=== PATIENT | female | born 1940 | race American Indian/Alaskan Native ===

== ENCOUNTER 2017-04-29 04:00 | Observation (INO) | payer OTHER ==
[2017-04-29 04:26] VITALS: BMI 32.8
[2017-04-29 04:35] LABS: BASOPHIL 0.5 % (0-2.0); MCH 24.4 pg (25.7-33.7); MCHC 31.3 g/dl (32.0-36.0); MEAN PLT VOLUME 7.7 fl (7.5-11.1); NEUTROPHILS 64.6 % (42.8-82.8); PLATELET COUNT 276 K/MM3 (134-434); RDW 15.5 % (11.6-15.6); WHITE BLOOD COUNT 10.3 K/mm3 (4.0-10.0)
--- NOTE | 2017-04-29 04:37 | PDOC ---
History of Present Illness - General History Source: Patient, Family, Old Records Exam Limitations: No Limitations - History of Present Illness Initial Comments: 04/29/17 05:30 The patient is a 77 year old female brought via EMS and presenting with her family, with a significant past medical history of asthma, diabetes, colitis, HTN, HLD and hypothyroidism, who presents to the emergency department with abdominal pain and back pain for the past 3 days. She describes her abdominal pain as diffused throughout her abdomen, ranging from mild to moderate, with radiation to her back. She notes that taking a deep breath exacerbates her pain. She denies any pain exacerbation when she eats. The patient denies chest pain, shortness of breath, headache and dizziness. Denies fever, chills, nausea, vomit, diarrhea and constipation. Denies dysuria, frequency, urgency and hematuria. Allergies: None Past surgical history: Left knee surgery, back surgery Social history: No alcohol, tobacco or drug use reported PMD - Dr. Stephen Balderas <Chase Finn - Last Filed: 04/29/17 05:30> <Justina Rolle - Last Filed: 04/29/17 06:22> <Tierney Flores - Last Filed: 04/30/17 09:39> - General Chief Complaint: Pain, Acute Stated Complaint: ABDOMINAL PAIN Time Seen by Provider: 04/29/17 04:36 Past History <Chase Finn - Last Filed: 04/29/17 05:30> - Past Medical History Anemia: No Asthma: Yes Cancer: No Cardiac Disorders: No CVA: No COPD: No CHF: No Dementia: No Diabetes: Yes GI Disorders: Yes (H/O COLITIS) Disorders: Yes (DENIES) HTN: Yes Hypercholesterolemia: Yes Liver Disease: No Suicide Attempt (Hx): No Seizures: No Thyroid Disease: (YES--HYPOTHYROIDISM) - Surgical History Abdominal Surgery: No Appendectomy: No Cardiac Surgery: No Cholecystectomy: No Lung Surgery: No Neurologic Surgery: Yes (BACK) Orthopedic Surgery: Yes (LT. KNEE REPLACEMENT) - Immunization History Td Vaccination: Yes TDAP Vaccination: Yes Immunization Up to Date: Yes - Psycho/Social/Smoking Cessation Hx Anxiety: Yes Suicidal Ideation: No (son denies) Smoking Status: No Smoking History: Never smoked Have you smoked in the past 12 months: No Number of Cigarettes Smoked Daily: 0 Hx Alcohol Use: No Drug/Substance Use Hx: No Substance Use Type: None Hx Substance Use Treatment: No <Justina Rolle - Last Filed: 04/29/17 06:22> <Tierney Flores - Last Filed: 04/30/17 09:39> - Past Medical History Allergies/Adverse Reactions: Allergies Allergy/AdvReac Type Severity Reaction Status Date / Time No Known Drug Allergies Allergy Verified 04/29/17 04:18 Home Medications: Ambulatory Orders Albuterol Sulfate Inhaler - [Ventolin HFA Inhaler -] 1 inh PO QID PRN 05/19/14 Docusate Sodium [Colace -] 100 mg PO TID 05/19/14 Lidocaine 5% Patch [Lidoderm -] 1 patch TP DAILY 05/19/14 Simvastatin [Zocor -] 20 mg PO HS 05/19/14 Tiotropium [place] [Spiriva] 1 inh PO BID 05/19/14 Albuterol Sulfate Inhaler - [Ventolin HFA Inhaler -] 1 - 2 inh PO QID PRN Denosumab [Prolia -] 60 mg SQ ASDIR 04/20/15 Esomeprazole Mag Trihydrate [Nexium] 20 mg PO DAILY 04/20/15 Hydroxychloroquine Sulfate 200 mg PO DAILY 04/20/15 Multivitamins [Multivit ([facility] Formulary)] 1 tab PO DAILY 04/20/15 Albuterol 0.083% Nebulizer Brenda [Ventolin 0.083% Nebulizer Soln -] 1 neb NEB TIDR vial 04/30/15 Amlodipine Besylate [Norvasc -] 10 mg PO DAILY tablet 04/30/15 Duloxetine HCl [Cymbalta -] 60 mg PO DAILY #0 capsule. 04/30/15 Polyethylene Glycol 3350 [Miralax 119 gm Btl -] 17 gm PO DAILY bottle 04/30/15 Arformoterol Tartrate [Brovana] 15 mcg IH ASDIR 04/29/17 Aspirin Coated [Ecotrin -] 81 mg PO DAILY 04/29/17 Famotidine [Pepcid -] 20 mg PO DAILY 04/29/17 Ferrous Sulfate 325 mg PO BID 04/29/17 Levothyroxine [Synthroid -] 75 mcg PO DAILY 04/29/17 Oxycodone HCl/Acetaminophen [Endocet 7.5-325 mg Tablet] 1 each PO DAILY Pregabalin [Lyrica -] 50 mg PO BID PRN 04/29/17 Review of Systems - Review of Systems Able to Perform ROS?: Yes Comments:: 04/29/17 05:30 GENERAL/CONSTITUTIONAL: No fever or chills. No weakness. HEAD, EYES, EARS, NOSE AND THROAT: No change in vision. No ear pain or discharge. No sore throat. CARDIOVASCULAR: No chest pain or shortness of breath RESPIRATORY: No cough, wheezing, or hemoptysis. GASTROINTESTINAL: (+) Abdominal pain. No nausea, vomiting, diarrhea or constipation. GENITOURINARY:(+) Back pain. No dysuria, frequency, or change in urination. MUSCULOSKELETAL: No joint or muscle swelling or pain. No neck pain. SKIN: No rash NEUROLOGIC: No headache, vertigo, loss of consciousness, or change in strength/ sensation. ENDOCRINE: No increased thirst. No abnormal weight change HEMATOLOGIC/LYMPHATIC: No anemia, easy bleeding, or history of blood clots. ALLERGIC/IMMUNOLOGIC: No hives or skin allergy. <Chase Finn - Last Filed: 04/29/17 05:30> *Physical Exam - Vital Signs Last Vital Signs Temp Pulse Resp BP Pulse Ox 97.9 F 78 22 133/68 95 04/29/17 04:24 04/29/17 04:24 04/29/17 04:24 04/29/17 04:24 04/29/17 04:24 - Physical Exam Comments: 04/29/17 05:30 GENERAL: Awake, alert, and fully oriented, in no acute distress HEAD: No signs of trauma, normocephalic, atraumatic EYES: PERRLA, EOMI, sclera anicteric, conjunctiva clear ENT: Auricles normal inspection, hearing grossly normal, nares patent, oropharynx clear without exudates. Moist mucosa NECK: Normal ROM, supple, no lymphadenopathy, JVD, or masses LUNGS: (+) Crackles. No distress, speaks full sentences. HEART: Regular rate and rhythm, normal S1 and S2, no murmurs, rubs or gallops, peripheral pulses normal and equal bilaterally. ABDOMEN: Soft, nontender, normoactive bowel sounds. No guarding, no rebound. No masses EXTREMITIES: Normal inspection, Normal range of motion, no edema. No clubbing or cyanosis. NEUROLOGICAL: Cranial nerves II through XII grossly intact. Normal speech, normal gait, no focal sensorimotor deficits SKIN: Warm, Dry, normal turgor, no rashes or lesions noted. <Chase Finn - Last Filed: 04/29/17 05:30> - Vital Signs Last Vital Signs Temp Pulse Resp BP Pulse Ox 97.9 F 78 22 133/68 95 04/29/17 04:24 04/29/17 04:24 04/29/17 04:24 04/29/17 04:24 04/29/17 04:24 <Justina Rolle - Last Filed: 04/29/17 06:22> - Vital Signs Last Vital Signs Temp Pulse Resp BP Pulse Ox 97.9 F 82 22 148/76 95 04/29/17 04:24 04/29/17 08:24 04/29/17 04:24 04/29/17 08:24 04/29/17 08:24 <Tierney Flores - Last Filed: 04/30/17 09:39> ED Treatment Course - LABORATORY CBC & Chemistry Diagram: 04/29/17 04:26 04/29/17 04:26 - ADDITIONAL ORDERS Additional order review: Laboratory Results 04/29/17 04:26 Sodium 136 Potassium 4.2 Chloride 104 Carbon Dioxide 23 Anion Gap 9 BUN 24 H D Creatinine 1.2 H Creat Clearance w eGFR 43.80 Random Glucose 171 H D Calcium 7.8 L Total Bilirubin 0.2 D AST 16 D ALT 14 Alkaline Phosphatase 80 D Creatine Kinase 63 Troponin I < 0.02 Total Protein 6.3 L Albumin 2.7 L Lipase 115 04/29/17 04:26 RBC 3.62 MCV 78.0 L MCHC 31.3 L RDW 15.5 MPV 7.7 D Neutrophils % 64.6 D Lymphocytes % 23.7 D Monocytes % 8.2 D Eosinophils % 3.0 D Basophils % 0.5 D <Chase Finn - Last Filed: 04/29/17 05:30> - LABORATORY CBC & Chemistry Diagram: 04/29/17 04:26 04/29/17 04:26 <Justina Rolle - Last Filed: 04/29/17 06:22> - LABORATORY CBC & Chemistry Diagram: 04/30/17 06:55 04/30/17 06:55 - ADDITIONAL ORDERS Additional order review: Laboratory Results 04/29/17 04/29/17 04:26 01:49 Sodium 136 Potassium 4.2 Chloride 104 Carbon Dioxide 23 Anion Gap 9 BUN 24 H D Creatinine 1.2 H Creat Clearance w eGFR 43.80 Random Glucose 171 H D Calcium 7.8 L Total Bilirubin 0.2 D AST 16 D ALT 14 Alkaline Phosphatase 80 D Creatine Kinase 63 Troponin I < 0.02 Total Protein 6.3 L Albumin 2.7 L Lipase 115 Urine Color Colorless Urine Appearance Clear Urine pH 5.0 Urine Protein Negative Urine Glucose (UA) Negative Urine Ketones Negative Urine Blood Negative Urine Nitrite Negative Urine Bilirubin Negative Urine Urobilinogen Negative Ur Leukocyte Esterase Negative 04/29/17 04:26 RBC 3.62 MCV 78.0 L MCHC 31.3 L RDW 15.5 MPV 7.7 D Neutrophils % 64.6 D Lymphocytes % 23.7 D Monocytes % 8.2 D Eosinophils % 3.0 D Basophils % 0.5 D - Medications Given in the ED: ED Medications Discontinued Medications Generic Name Dose Route Start Last Admin Trade Name Freq PRN Reason Stop Dose Admin Al Hydroxide/Mg Hydroxide 30 ml 04/29/17 05:21 04/29/17 05:36 Mylanta Oral Suspension - PO 04/29/17 05:22 30 ml ONCE ONE Administration Morphine Sulfate 2 mg 04/29/17 05:20 04/29/17 06:09 Morphine Injection - IVPUSH 04/29/17 05:21 2 mg ONCE ONE Administration Sodium Chloride 500 ml 04/29/17 05:21 04/29/17 05:36 Normal Saline - IV 04/29/17 05:22 500 ml ONCE ONE Administration <Tierney Flroes - Last Filed: 04/30/17 09:39> Medical Decision Making - Medical Decision Making 04/29/17 06:22 Pt comes with upper abdominal pain. But she also points toher lower abd pain. She has never had abd surgery, and on exam it is possible that she has a GB inflammation or a diverticulitis. She has no diarrhea and no vomiting, and no dysuria. No fever; no flank pain; she is able to eat without pain. She has constipation and gas. She has fibrotic lung dz, and she has HTN. She is complaint with all her meds. She will be treated with pain meds and IVF. Labs pending. CT abd pelvis with oral contrast pending; US abdomen pending. Pt will be signed out to the day ER doctor. <Justina Rolle - Last Filed: 04/29/17 06:22> - Medical Decision Making 04/29/17 09:[address] Balderas's office, awaiting callback. <Tierney Flores - Last Filed: 04/30/17 09:39> *DC/Admit/Observation/Transfer - Attestations Scribe Attestion: 04/29/17 05:30 Documentation prepared by Chase Finn, acting as medical office receptionist assistant for Justina Rolle MD <Chsae Finn - Last Filed: 04/29/17 05:30> <Justina Rolle - Last Filed: 04/29/17 06:22> <Tierney Flores - Last Filed: 04/30/17 09:39> Diagnosis at time of Disposition: Abdominal pain Qualifiers: Abdominal location: generalized Qualified Code(s): R10.84 - Generalized abdominal pain Abdominal aortic aneurysm Qualifiers: Presence of rupture: without rupture Qualified Code(s): I71.4 - Abdominal aortic aneurysm, without rupture - Discharge Dispostion Condition at time of disposition: Guarded - Referrals
[2017-04-29 05:08] LABS: ALBUMIN 2.7 g/dl (3.4-5.0); ANION GAP 9 (8-16); BILIRUBIN,TOTAL 0.2 mg/dL (0.2-1.0); CALCIUM 7.8 mg/dL (8.5-10.1); CO2 23 mmol/L (21-32); COCKROFT - GAULT 53.6605; CREATININE 1.2 mg/dL (0.55-1.02); GLUCOSE,RANDOM 171 mg/dL (74-106); SGOT/AST 16 U/L (15-37); SGPT/ALT 14 U/L (12-78); TOT PROT 6.3 g/dl (6.4-8.2)
[2017-04-29 05:11] LABS: ALK PHOS 80 U/L (45-117); TROPONIN I < 0.02 ng/ml (0.00-0.05)
[2017-04-29] MEDS ORDERED: morphine CARPU-JECT 2 MG/1 ML DISP.SYRIN IVPUSH ONE (05:20)
[2017-04-29] MEDS ORDERED: SODIUM CHLORIDE 0.9% 500 ML INFUS.BAG IV ONE (05:21)
[2017-04-29] MEDS ORDERED: morphine CARPU-JECT 2 MG/1 ML DISP.SYRIN ONE (05:21)
[2017-04-29] MEDS ORDERED: MAG HYDROX/AL HYDROX/SIMETH 30 ML UNIT-DOSE CUP PO ONE (05:21)
[2017-04-29] MEDS ORDERED: MAG HYDROX/AL HYDROX/SIMETH 30 ML UNIT-DOSE CUP ONE (05:29)
[2017-04-29 06:56] LABS: URINE APPEARANCE CLEAR; URINE BILIRUBIN NEGATIVE (NEGATIVE); URINE BLOOD NEGATIVE (NEGATIVE); URINE COLOR COLORLESS; URINE GLUCOSE (UA) NEGATIVE (NEGATIVE); URINE KETONE NEGATIVE (NEGATIVE); URINE LEUK ESTERASE NEGATIVE (NEGATIVE); URINE NITRITE NEGATIVE (NEGATIVE); URINE PROTEIN NEGATIVE (NEGATIVE); URINE UROBILINOGEN NEGATIVE E.U./dl (0.2-1.0)
[2017-04-29] MEDS ORDERED: morphine CARPU-JECT 4 MG/1 ML DISP.SYRIN IVPUSH ONE (09:21)
[2017-04-29] MEDS ORDERED: morphine CARPU-JECT 4 MG/1 ML DISP.SYRIN ONE (09:24)
--- NOTE | 2017-04-29 10:03 | PDOC ---
*Physical Exam - Vital Signs Last Vital Signs Temp Pulse Resp BP Pulse Ox 97.9 F 82 22 148/76 95 04/29/17 04:24 04/29/17 08:24 04/29/17 04:24 04/29/17 08:24 04/29/17 08:24 ED Treatment Course - LABORATORY CBC & Chemistry Diagram: 04/29/17 04:26 04/29/17 04:26 - ADDITIONAL ORDERS Additional order review: Laboratory Results 04/29/17 04/29/17 04/29/17 07:15 04:26 01:49 Sodium 136 Potassium 4.2 Chloride 104 Carbon Dioxide 23 Anion Gap 9 BUN 24 H D Creatinine 1.2 H Creat Clearance w eGFR 43.80 Random Glucose 171 H D Calcium 7.8 L Total Bilirubin 0.2 D AST 16 D ALT 14 Alkaline Phosphatase 80 D Creatine Kinase 63 Troponin I < 0.02 Total Protein 6.3 L Albumin 2.7 L Lipase 115 Urine Color Colorless Urine Appearance Clear Urine pH 5.0 Urine Protein Negative Urine Glucose (UA) Negative Urine Ketones Negative Urine Blood Negative Urine Nitrite Negative Urine Bilirubin Negative Urine Urobilinogen Negative Ur Leukocyte Esterase Negative Stool Occult Blood Negative 04/29/17 04:26 RBC 3.62 MCV 78.0 L MCHC 31.3 L RDW 15.5 MPV 7.7 D Neutrophils % 64.6 D Lymphocytes % 23.7 D Monocytes % 8.2 D Eosinophils % 3.0 D Basophils % 0.5 D - Medications Given in the ED: ED Medications Discontinued Medications Generic Name Dose Route Start Last Admin Trade Name Freq PRN Reason Stop Dose Admin Al Hydroxide/Mg Hydroxide 30 ml 04/29/17 05:21 04/29/17 05:36 Mylanta Oral Suspension - PO 04/29/17 05:22 30 ml ONCE ONE Administration Morphine Sulfate 2 mg 04/29/17 05:20 04/29/17 06:09 Morphine Injection - IVPUSH 04/29/17 05:21 2 mg ONCE ONE Administration Morphine Sulfate 4 mg 04/29/17 09:21 04/29/17 09:28 Morphine Injection - IVPUSH 04/29/17 09:22 4 mg ONCE ONE Administration Sodium Chloride 500 ml 04/29/17 05:21 04/29/17 05:36 Normal Saline - IV 04/29/17 05:22 500 ml ONCE ONE Administration Medical Decision Making - Medical Decision Making 04/29/17 09:21 Pt signed out to me at 7am signout, was pending US and CT a/p for diffuse abd pain. She was noted to have significant change in her hemoglobin since last admission 2 years ago. I have obtained stool occult. 04/29/17 10:03 Case d/w Dr. Metcalf, covering Dr. Balderas, will admit on her service. She is not aware if patient had prior known history of AAA, will review outpatient records. I will page Dr. Clayton to discuss. 04/29/17 10:22 Case d/w Dr. Clayton, will evaluate. *DC/Admit/Observation/Transfer Diagnosis at time of Disposition: Abdominal pain Qualifiers: Abdominal location: generalized Qualified Code(s): R10.84 - Generalized abdominal pain Abdominal aortic aneurysm Qualifiers: Presence of rupture: without rupture Qualified Code(s): I71.4 - Abdominal aortic aneurysm, without rupture - Discharge Dispostion Condition at time of disposition: Guarded Admit: Yes - Referrals - Patient Instructions - Post Discharge Activity
[2017-04-29] MEDS ORDERED: SODIUM CHLORIDE 1,000 ML IV STA (10:21)
[2017-04-29] MEDS ORDERED: ALBUTEROL SO4 0.083% IH SOL 2.5 MG/3 ML VIAL.NEB. NEB PRN (18:02)
[2017-04-29] MEDS ORDERED: OXYCODONE/APAP 5/325MG COMBO TABLET PO PRN (18:11)
--- NOTE | 2017-04-29 20:08 | HP ---
Admitting History and Physical - Primary Care Physician PCP: Javier Balderas - Admission Chief Complaint: pain History of Present Illness: developed over the past 4 days progressively worsening, constant, pleuritic lower chest/upper abdominal pain, going around in a band like feeling. no recent travel, no fever, no chills, no medication change History Source: Patient, Family Member Limitations to Obtaining History: Language Barrier - Past Medical History Cardiovascular: Yes: CAD (NSTEMI in past), HTN, Hyperlipdemia. No: AFIB, Aneurysm, Aortic Insufficiency, Aortic Stenosis, CHF, Deep Vein Thrombosis, IN, Mitral Insufficiency, Mitral Stenosis, Murmur, Pulmonary Hypertension, Other Pulmonary: Yes: Asthma, COPD, Pneumonia, Other (interstitial lung disease) Gastrointestinal: Yes: Constipation, GERD. No: Ascites, Cancer, Crohn's Disease , Diverticulitis, Diverticulosis, Esophageal Varices, Gastritis, GI Bleed, Hemorrhoids, Hiatal Hernia, Inflamatory Bowel Disease, Irritable Bowel Disease, Pancreatitis, Peptic Ulcer Disease, Ulcerative Colitis, Other ...: No Infectious Disease: Yes: C-Diff (), Herpes Zoster (2013). No: AIDS, HIV, MRSA, STD's, Tuberculosis, VREF, Other Psych: Yes: Depression (recently started on Cymbalta). No: Addictions, Anxiety , Bipolar, Panic, Psychosis, Schizophrenia, Other Musculoskeletal: Yes: Osteoarthritis (s/p left knee replacement). No: Bursitis , Chronic low back pain, Hemiparesis, Hemiplegia, Paraplegia, Other Endocrine: Yes: Diabetes Mellitus (diet controlled hyperglycemia), Hypothyroidism, Osteopenia (osteoporosis with compression fractures), Other ( hyponatremia chronic) - Past Surgical History Past Surgical History: Yes: Cataract Removal, Joint Replacement (L TKR, left hip ). No: None, AAA Repair, AICD, Amputation, Appendectomy, Arthrosocopy, AV Fistula/Graft, Bariatric Surgery, Breast Biopsy, Bypass, CABG, Carotid Endarterectomy, Cholecystectomy, Colectomy, Colonoscopy, Colostomy, Craniotomy, , Cystectomy, Hernia Repair, Hysterectomy, Ileal Conduit, Ileosotomy, Kidney Transplant, Laminectomy, Liver Transplant, Mastectomy, Nephrectomy, Oopherectomy, Orchiectomy, Permanent Pacemaker, Prostatectomy, Splenectomy, Stent, Thoracotomy, TURP, Tonsillectomy, Tubal Ligation, Upper Endoscopy, Valve Replacement, Vasectomy, Vein Stripping/Ligation - Smoking History Smoking history: Never smoked Have you smoked in the past 12 months: No Aproximately how many cigarettes per day: 0 - Alcohol/Substance Use Hx Alcohol Use: No History of Substance Use: reports: None - Social History Usual Living Arrangement: Yes: With Spouse ADL: Independent History of Recent Travel: No (returned from [facility]/[place] yesterday) Home Medications - Allergies Allergies/Adverse Reactions: Allergies Allergy/AdvReac Type Severity Reaction Status Date / Time No Known Drug Allergies Allergy Verified 04/29/17 04:18 - Home Medications Home Medications: Ambulatory Orders RX: Albuterol Sulfate Inhaler - [Ventolin HFA Inhaler -] 1 inh PO QID PRN RX: Docusate Sodium [Colace -] 100 mg PO TID 05/19/14 RX: Lidocaine 5% Patch [Lidoderm -] 1 patch TP DAILY 05/19/14 RX: Simvastatin [Zocor -] 20 mg PO HS 05/19/14 RX: Tiotropium [place] [Spiriva] 1 inh PO BID 05/19/14 RX: Albuterol Sulfate Inhaler - [Ventolin HFA Inhaler -] 1 - 2 inh PO QID PRN RX: Denosumab [Prolia -] 60 mg SQ ASDIR 04/20/15 RX: Esomeprazole Mag Trihydrate [Nexium] 20 mg PO DAILY 04/20/15 RX: Hydroxychloroquine Sulfate 200 mg PO DAILY 04/20/15 RX: Multivitamins [Multivit ([facility] Formulary)] 1 tab PO DAILY 04/20/15 RX: Albuterol 0.083% Nebulizer Brenda [Ventolin 0.083% Nebulizer Soln -] 1 neb NEB TIDR vial 04/30/15 RX: Amlodipine Besylate [Norvasc -] 10 mg PO DAILY tablet 04/30/15 RX: Duloxetine HCl [Cymbalta -] 60 mg PO DAILY #0 capsule. 04/30/15 RX: Polyethylene Glycol 3350 [Miralax 119 gm Btl -] 17 gm PO DAILY bottle 04/30 Arformoterol Tartrate [Brovana] 15 mcg IH ASDIR 04/29/17 Aspirin Coated [Ecotrin -] 81 mg PO DAILY 04/29/17 Famotidine [Pepcid -] 20 mg PO DAILY 04/29/17 Oxycodone HCl/Acetaminophen [Endocet 7.5-325 mg Tablet] 1 each PO DAILY Pregabalin [Lyrica -] 50 mg PO BID PRN 04/29/17 RX: Ferrous Sulfate 325 mg PO BID 04/29/17 RX: Levothyroxine [Synthroid -] 75 mcg PO DAILY 04/29/17 Family Disease History - Family Disease History Family History: Unable to Obtain Family Disease History: Other: Father (d), Mother (d) Review of Systems - Review of Systems Constitutional: reports: Weakness Eyes: denies: No Symptoms HENT: denies: No Symptoms Neck: denies: No Symptoms Cardiovascular: denies: Palpitations, Shortness of Breath Respiratory: reports: SOB on Exertion (chronic). denies: Cough, Hemoptysis, Wheezing Gastrointestinal: reports: Abdominal Pain. denies: Constipation, Diarrhea, Dysphagia, Nausea, Rectal Bleeding, Vomiting Genitourinary: denies: No Symptoms Musculoskeletal: reports: Back Pain (chronic) Integumentary: denies: No Symptoms Neurological: denies: No Symptoms Psychiatric: denies: No Symptoms Pain Intensity: 8 Physical Examination Vital Signs: Vital Signs Temperature 97.6 F 04/29/17 17:58 Pulse Rate 75 04/29/17 17:58 Respiratory Rate 18 04/29/17 17:58 Blood Pressure 147/78 04/29/17 17:58 O2 Sat by Pulse Oximetry (%) 95 04/29/17 17:58 Constitutional: Yes: Anxious, Obese Eyes: Yes: EOM Intact HENT: Yes: Normocephalic Neck: Yes: Trachea Midline Cardiovascular: Yes: Regular Rate and Rhythm Respiratory: Yes: Diminished, Rales (coarse basal). No: Accessory Muscle Use, Rhonchi, Wheezes Gastrointestinal: Yes: Normal Bowel Sounds, Soft, Abdomen, Obese Musculoskeletal: Yes: Back Pain Extremities: Yes: WNL Edema: No Neurological: Yes: WNL Imaging - Results Chest X-ray: Report Reviewed Cat Scan: Report Reviewed Problem List - Problems (1) Abdominal aortic aneurysm Code(s): I71.4 - ABDOMINAL AORTIC ANEURYSM, WITHOUT RUPTURE Qualifiers: Presence of rupture: without rupture Qualified Code(s): I71.4 - Abdominal aortic aneurysm, without rupture (2) Abdominal pain Code(s): R10.9 - UNSPECIFIED ABDOMINAL PAIN Qualifiers: Abdominal location: generalized Qualified Code(s): R10.84 - Generalized abdominal pain Assessment/Plan unclear etiology, will repeat cardiac enzymes, TSH, lipase imaging so far negative for abdmonial process or aortic dissection new aneurysm, however, shoudld not cause this level of pain admit to hospital iv fluids pain mgmt
[2017-04-29] MEDS: oxyCODONE HCL 5 MG TABLET PO PRN (21:02)
[2017-04-29] MEDS: DOCUSATE SODIUM 100 MG CAPSULE (FP) PO SCH (21:02)
[2017-04-29] MEDS: ACETAMINOPHEN 325 MG TABLET (FP) PO PRN (21:02)
[2017-04-29] MEDS: ACLIDINIUM BROMIDE 400 MCG/INH AERO.POWD IH SCH (21:09)
[2017-04-29] MEDS: SODIUM CHLORIDE 0.45% 1,000 ML IV SCH (21:12)
[2017-04-29] MEDS: PREGABALIN 50 MG CAPSULE PO SCH (22:22)
[2017-04-30] MEDS: ACETAMINOPHEN 325 MG TABLET (FP) PO PRN (06:12)
[2017-04-30] MEDS: oxyCODONE HCL 5 MG TABLET PO PRN (06:12)
[2017-04-30] MEDS: DOCUSATE SODIUM 100 MG CAPSULE (FP) PO SCH (06:13)
[2017-04-30] MEDS: SODIUM CHLORIDE 0.45% 1,000 ML IV SCH (06:14)
[2017-04-30] MEDS ORDERED: LEVOTHYROXINE NA 75 MCG TABLET (FP) PO SCH (07:00)
[2017-04-30 07:45] LABS: BASOPHIL 0.6 % (0-2.0); EOSINOPHIL 6.2 % (0-4.5); MCHC 32.1 g/dl (32.0-36.0); MEAN PLT VOLUME 7.9 fl (7.5-11.1); NEUTROPHILS 59.7 % (42.8-82.8); PLATELET COUNT 316 K/MM3 (134-434); RDW 15.3 % (11.6-15.6); WHITE BLOOD COUNT 10.1 K/mm3 (4.0-10.0)
[2017-04-30 08:08] LABS: ALBUMIN 2.8 g/dl (3.4-5.0); ANION GAP 10 (8-16); BILIRUBIN,TOTAL 0.4 mg/dL (0.2-1.0); CALCIUM 8.2 mg/dL (8.5-10.1); CO2 25 mmol/L (21-32); GLUCOSE,RANDOM 121 mg/dL (74-106); SGOT/AST 16 U/L (15-37); SGPT/ALT 14 U/L (12-78); TOT PROT 6.8 g/dl (6.4-8.2)
[2017-04-30 08:17] LABS: ALK PHOS 95 U/L (45-117); THYROID STIMULATING HORMONE 2.19 uIU/ml (0.358-3.74); TROPONIN I < 0.02 ng/ml (0.00-0.05)
[2017-04-30] MEDS ORDERED: amLODIPine BESYLATE 10 MG TABLET (FP) PO SCH (10:00)
[2017-04-30] MEDS ORDERED: PANTOPRAZOLE 40 MG TABLET (FP) PO SCH (10:00)
[2017-04-30] MEDS ORDERED: LIDOCAINE 5% TOPICAL PATCH TP SCH (10:00)
[2017-04-30] MEDS ORDERED: HYDROXYCHLOROQUINE SO4 200 MG TABLET (FP) PO SCH (10:00)
[2017-04-30] MEDS ORDERED: PT OWN MED DRAWER 7, Y5N ONE (10:21)
[2017-04-30] MEDS: PREGABALIN 50 MG CAPSULE PO SCH (10:27)
[2017-04-30] MEDS: ACLIDINIUM BROMIDE 400 MCG/INH AERO.POWD IH SCH (10:28)
--- NOTE | 2017-04-30 10:31 | PN ---
Progress Note (short form) - Note Progress Note: Vascular surgery: Asked to evaluate the patient for the finding of a thoracic aneurysm. She was admitted several days ago for upper back pain and abd pain. The patient states that she has chronic low back pain after a fall two years ago. No history of upper back pain until now. This pain started three days ago, it is in her upper back, b/l below her shoulders and into her ribs. She denises any trauma. She c/ o SOB but also states that she has chronic lungs issues and had a lung biopsy several years ago. Overall her pain is improved slighty, no nausea or emesis. PMHX: HTN, Diabetes, CAD with NSTEMI, asthma, COPD, intersititial lung disease PSHX: lung biospy, left knee surgery, hip surgery Vital Signs Period Temp Pulse Resp BP Sys/Amin Pulse Ox Last 24 Hr 97.5 F-99.2 F 75-100 18-18 122-161/78-91 95-95 PE: CV: RRR Lungs: course BS b/l, no wheezing ABD: soft, non-distended, non-tender CT CHEST 04/29: with IV constrast-5.3cm focal aneurysm in proximal aortic arch. No evidence fo additional aneurysmal or dissection within the thoracic or abdominal aorta. Interstitial lung disease. A/P: 77 yo female with finding of 5.3cm focal aneurysm of proximal aortic arch. As per Dr. Clayton, he recommends f/u with cardiothoracic surgery since aneurysm in aortic arch, no abdominal component No acute Vascular surgery issues at this time Medical managment of her HTN Spoke with the medial attending regarding aneurysm recommendations [employer] intrepeter number [id number] used
--- NOTE | 2017-04-30 10:48 | EKG ---
Test Reason : Blood Pressure : / mmHG Vent. Rate : 096 BPM Atrial Rate : 096 BPM P-R Int : 180 ms QRS Dur : 092 ms QT Int : 350 ms P-R-T Axes : 024 -07 032 degrees QTc Int : 442 ms NORMAL SINUS RHYTHM NORMAL ECG WHEN COMPARED WITH ECG OF 20-APR-2015 06:41, DE INTERVAL HAS DECREASED Confirmed by MARYANN HUDDLESTON, BRITTANIE ([id number]) on 04/30/2017 10:48:24 AM Referred By: MARIA E MCKEON Confirmed By:BRITTANIE WOLF MD
[2017-04-30 12:12] VITALS: BP 101/59; PULSE 96; TEMP 97.4
[2017-04-30] MEDS ORDERED: LIDOCAINE PATCH REMOVAL MC SCH (22:00)
== END 2017-04-30 13:33 | disposition home health service (06) ==
LOC: SUPCPDRO 04:00 → JER 04:00 → JERBED 10:03 → UNDOADMOB 10:03 → INTOOBSV 10:03 → JERBED 17:46 → J6S 17:46 → JERBED 04-30 11:01
PROVIDERS: ADMIT Internal Medicine; ATTEND Internal Medicine
PROC: 3E033NZ Introduction of Analgesics, Hypnotics, Sedatives into Peripheral Vein, Percutaneous Approach (ICD-10-PCS; principal; 2017-04-30)
PROC: 3E0337Z Introduction of Electrolytic and Water Balance Substance into Peripheral Vein, Percutaneous Approach (ICD-10-PCS; 2017-04-30)
PROC: 3E0F7GC Introduction of Other Therapeutic Substance into Respiratory Tract, Via Natural or Artificial Opening (ICD-10-PCS; 2017-04-30)
PROC: 3E0F7GC Introduction of Other Therapeutic Substance into Respiratory Tract, Via Natural or Artificial Opening (ICD-10-PCS; 2017-04-30)
DX: I71.4 Abdominal aortic aneurysm, without rupture (principal); R10.84 Generalized abdominal pain; I25.10 Atherosclerotic heart disease of native coronary artery without angina pectoris; I10 Essential (primary) hypertension; J45.909 Unspecified asthma, uncomplicated; J44.9 Chronic obstructive pulmonary disease, unspecified; E11.9 Type 2 diabetes mellitus without complications; E78.5 Hyperlipidemia, unspecified; E66.9 Obesity, unspecified; Z68.32 Body mass index [BMI] 32.0-32.9, adult; E03.9 Hypothyroidism, unspecified; K21.9 Gastro-esophageal reflux disease without esophagitis; Z87.19 Personal history of other diseases of the digestive system; Z96.652 Presence of left artificial knee joint; Z79.82 Long term (current) use of aspirin; M54.5 Low back pain; G89.29 Other chronic pain
CPT/HCPCS: 36415; 71275-TC; 74174-TC; 74176-TC; 76705-TC; 80053; 81003; 82272; 82550; 83690; 84443; 84484; 85025; 93005; 93010; 94640; 99285-25; G0378